=== PATIENT | female | born 1975 | race Caucasian/White ===

== ENCOUNTER → 2023-10-11 | Outpatient (CLI) | payer OTHER ==
--- NOTE | 2023-10-14 14:49 | MM ---
Reason for Exam: Screening (asymptomatic). Last mammogram was performed 7 year(s) and 6 month(s) ago. Patient History: Menarche at age 11. First Full-Term at age 27. Postmenopausal. Currently using Estrogen and Progesterone, starting at age 47. Paternal grandmother had breast cancer under age 50. Last menstrual period: Risk Values: Melissa 5 year model risk: 1.1%. NCI Lifetime model risk: 9.9%. Prior Study Comparison: 01/02/2011 Bilateral Screening Mammogram, [facility]. 11/09/2014 Bilateral Screening Mammogram, [facility]. 04/06/2016 Bilateral Screening Mammogram, [facility]. Tissue Density: There are scattered fibroglandular densities. Findings: Analyzed By CAD. Pattern appears symmetrical. Couple of benign-appearing rounded densities are in the anterior right breast. Short-term follow-up in 6 months can be performed for confirmation of stability. No suspicious groups of microcalcifications, spiculated or lobular masses, architectural distortion or other secondary signs of malignancy are mammographically apparent. Overall Assessment: Probably benign, BI-RAD 3 Management: Diagnostic Mammogram of the right breast in 6 months. A negative mammogram report should not preclude additional follow up of suspicious palpable abnormalities. Patient should continue monthly self breast exam. A clinical breast exam by your physician is recommended on an annual basis and results should be correlated with mammographic findings. Electronically signed and approved by: Masodo Cadena D.O. Radiologis
== END | disposition home or self-care (01) ==
LOC: RADMAMWWP 07:59
PROVIDERS: ATTEND Family Medicine
DX: Z12.39 Encounter for other screening for malignant neoplasm of breast (principal); Z80.3 Family history of malignant neoplasm of breast; Z78.0 Asymptomatic menopausal state
CPT/HCPCS: 77063; 77067

== ENCOUNTER 2023-11-13 10:39 | Day surgery (SDC) | payer OTHER ==
--- NOTE | 2023-11-13 07:39 | P.GSHP ---
History of Present Illness H&P Date: 11/13/23 CHIEF COMPLAINT: Colon screen HISTORY OF PRESENT ILLNESS: The patient is a 48-year-old female who presents for colon screen. Lower endoscopy was offered for further evaluation and management. PAST MEDICAL HISTORY: Please see list. PAST SURGICAL HISTORY: Please see list. MEDICATIONS: Please see list. ALLERGIES: Please see list. SOCIAL HISTORY: No illicit drug use FAMILY HISTORY: No reports of Crohn disease or ulcerative colitis. REVIEW OF ORGAN SYSTEMS: CONSTITUTIONAL: No reports of fevers or chills. PHYSICAL EXAM: VITAL SIGNS: Stable GENERAL: Well-developed pleasant in no acute distress. HEENT: No scleral icterus. Extraocular movements grossly intact. Moist buccal mucosa. NECK: Supple without lymphadenopathy. CHEST: Unlabored respirations. Equal bilateral excursions. CARDIOVASCULAR: Regular rate and rhythm. Distal 2+ pulses. ABDOMEN: Soft, nontender, nondistended. MUSCULOSKELETAL: No clubbing, cyanosis, or edema. ASSESSMENT: 1. Colon screen. PLAN: 1. Recommend proceeding with a lower endoscopy Past Medical History Past Medical History: GERD/Reflux, Thyroid Disorder Additional Past Medical History / Comment(s): hypothyroidism, fluid retention History of Any Multi-Drug Resistant Organisms: None Reported Past Surgical History: Tonsillectomy Additional Past Surgical History / Comment(s): liposuction Past Anesthesia/Blood Transfusion Reactions: No Reported Reaction Smoking Status: Former smoker Medications and Allergies Home Medications Medication Instructions Recorded Confirmed Type L.acidophil/L.plantar/Bifido 7 1 tab PO DAILY 11/11/23 11/11/23 History [Up4 Probiotics Adult 15B Cap] Medroxyprogesterone Acetate 2.5 mg PO DAILY 11/11/23 11/11/23 History [Provera] Multivitamin [Multivitamins Adult 1 tab PO DAILY 11/11/23 11/11/23 History Gummies] Thyroid,Pork [Foreign Agent Thyroid] 30 mg PO QAM 11/11/23 11/11/23 History estradioL 0.5 mg PO DAILY 11/11/23 11/11/23 History hydroCHLOROthiazide 12.5 mg PO DAILY 11/11/23 11/11/23 History traZODone HCL [Desyrel] 100 mg PO HS PRN 11/11/23 11/11/23 History Allergies Allergy/AdvReac Type Severity Reaction Status Date / Time Latex, Natural Rubber Allergy Severe Dyspnea Verified 11/11/23 18:02
[2023-11-13] MEDS: LACTATED RINGERS 1,000 ML IV SCH (10:57)
[2023-11-13 11:34] VITALS: TEMP 97.3
[2023-11-13] MEDS ORDERED: GLYCOPYRROLATE 0.2 MG/ML 2 ML VIAL ONE (11:38)
[2023-11-13] MEDS ORDERED: PROPOFOL 10 MG/ML 20 ML VIAL IV ONE (11:38)
--- NOTE | 2023-11-13 11:54 | P.PCN ---
Date of Procedure: 11/13/23 Description of Procedure: PREOPERATIVE DIAGNOSIS: Colonoscopy screening. POSTOPERATIVE DIAGNOSIS: Colonoscopy screening. OPERATION: Colonoscopy to the cecum, ileocecal valve and appendiceal orifice. SURGEON: Tamika Lipscomb MD. ANESTHESIA: MAC. INDICATIONS: The patient is a 57-year-old female who presents for colonoscopy screening. Benefits and risks were described and informed consent was obtained. DESCRIPTION OF PROCEDURE: The patient had undergone Sutab prep. The patient had been brought into the operating room and laid in the left lateral decubitus position. After adequate intravenous sedation, the rectum was examined with 2% lidocaine jelly. No external hemorrhoids were encountered. The rectal tone was within normal limits. No lesions were palpated in the rectal vault. An Olympus colonoscope was advanced until the cecum, ileocecal valve and appendiceal orifice were clearly viewed. The prep was excellent. No scattered diverticulosis was encountered. No colonic polyps were found. No evidence of focal colitis was found. Retroflexion of the scope demonstrated grade 1 internal hemorrhoids without active bleeding or inflammation. The colon was desufflated. The patient had tolerated the procedure well. Withdrawal time was over 6 minutes. FINDINGS: Aronchick preparation quality scale (1-5) Internal hemorrhoids, grade 1 No external prolapsed hemorrhoids. No arteriovenous malformations. No adenomatous polyps. No focal colitis. RECOMMENDATIONS: Lower endoscopy 10 years, 2033 Plan - Discharge Summary Discharge Rx Participant: Yes New Discharge Prescriptions: Continue traZODone HCL [Desyrel] 100 mg PO HS PRN PRN Reason: Insomnia hydroCHLOROthiazide 12.5 mg PO DAILY estradioL 0.5 mg PO DAILY Multivitamin [Multivitamins Adult Gummies] 1 tab PO DAILY L.acidophil/L.plantar/Bifido 7 [Up4 Probiotics Adult 15B Cap] 1 tab PO DAILY Thyroid,Pork [Element Setter Thyroid] 30 mg PO QAM Medroxyprogesterone Acetate [Provera] 2.5 mg PO DAILY Discharge Medication List L.acidophil/L.plantar/Bifido 7 [Up4 Probiotics Adult 15B Cap] 1 tab PO DAILY 11/11/23 [History] Medroxyprogesterone Acetate [Provera] 2.5 mg PO DAILY 11/11/23 [History] Multivitamin [Multivitamins Adult Gummies] 1 tab PO DAILY 11/11/23 [History] Thyroid,Pork [Element Setter Thyroid] 30 mg PO QAM 11/11/23 [History] estradioL 0.5 mg PO DAILY 11/11/23 [History] hydroCHLOROthiazide 12.5 mg PO DAILY 11/11/23 [History] traZODone HCL [Desyrel] 100 mg PO HS PRN 11/11/23 [History] Follow up Appointment(s)/Referral(s): Tamika Lipscomb MD [STAFF PHYSICIAN] - As Needed Patient Instructions/Handouts: Moderate Sedation (ED) Activity/Diet/Wound Care/Special Instructions: Repeat colonoscopy 10 2033 Discharge Disposition: HOME SELF-CARE
[2023-11-13 12:47] VITALS: BP 125/81; PULSE 73; RESP 16
== END 2023-11-13 12:54 | disposition home or self-care (01) ==
LOC: ORWHC2ENDO 10:39
PROVIDERS: ATTEND Surgery Plastic and Reconstructive Surgery
DX: Z12.11 Encounter for screening for malignant neoplasm of colon (principal); K64.0 First degree hemorrhoids; K21.9 Gastro-esophageal reflux disease without esophagitis; E03.9 Hypothyroidism, unspecified; Z87.891 Personal history of nicotine dependence; Z79.890 Hormone replacement therapy; Z79.899 Other long term (current) drug therapy; Z91.040 Latex allergy status; Z90.89 Acquired absence of other organs
CPT/HCPCS: 45378; J2704